=== PATIENT | male | born 1945 | race Caucasian/White ===

== ENCOUNTER → 2018-04-08 15:30 | Outpatient (CLI) | payer MEDICARE, OTHER, SELFPAY ==
--- NOTE | 2018-04-08 09:00 | DISC_PTH ---
PATIENT: CLEMENCIA PATEL LOC: [facility] U#:[id number] AGE/SX: 80/M ROOM: RE04/08/[address]: Simon Henry MD : 1945 BED: DIS: SPEC #: [id number] RECD: 04/08/18 15:24 STATUS: EVON LEESA #: [id number] ARMAND: 04/08/18 09:[address]: Simon Henry DEPT: SURGICAL PATHOLOGY RECD BY: Alvaro Pearson ENTERED: 04/09/18 14:13 SP TYPE: DISC OTHR DR: Dr. Jose M Dumont MD [facility] Tissues: Intervertebral disc, NOS Procedures: Surgery Specimen Level III HEADER OPERATION: Hemilaminectomy L4 with discectomy L4-L5 of extruded fragment with foraminotomy L4L5, right L4 radiculopathy with L4-L5 disc herniation, right PRE-OP DIAGNOSIS: Disc herniation TISSUE SUBMITTED: Extruded disc L4-L5 right MICROSCOPIC DIAGNOSIS Disc L4-L5 right: Fragments of fibrocartilaginous tissue with reactive changes. [place]:diana 04/16/18 MICROSCOPIC DESCRIPTION Slides are reviewed. GROSS DESCRIPTION Received is one container labeled with the patient's name and not further designated. The specimen consists of multiple irregular and form fragments of pink-cash soft tissue that in aggregate measure 1.5 x 1 x 0.3 cm. The specimen is totally submitted in one cassette. / AM:diana 04/09/18 TC:5 CPT: 02776
== END ==
PROVIDERS: Visit Provider Orthopaedic Surgery
DX: M54.16 Radiculopathy, lumbar region (principal); M51.26 Other intervertebral disc displacement, lumbar region
CPT/HCPCS: 88304

== ENCOUNTER 2019-11-07 16:44 | Emergency (ER) | payer MEDICARE, OTHER, SELFPAY ==
[2019-11-07 16:46] VITALS: BP 133/67; PULSE 57; RESP 18; TEMP 36.3; O2SAT 96; O2SAT 97; BMI 30.9
== END 2019-11-07 18:22 | disposition left against medical advice (07) ==
LOC: ED 17:13
PROVIDERS: Emergency Provider Emergency Medicine; Family Provider Family Medicine; PCP Family Medicine
DX: R69 Illness, unspecified (principal); Z53.21 Procedure and treatment not carried out due to patient leaving prior to being seen by health care provider

== ENCOUNTER → 2024-11-16 | Outpatient (CLI) | payer MEDICARE, SELFPAY ==
[2024-11-16 16:46] LABS: Hematocrit 37.9 % (40-54); Hemoglobin 13.4 g/dL (13.0-16.5); Mean Corp Hgb Conc 35.4 g/dL (32-36); Mean Corpuscular Hgb 32.4 pg (27.0-32.0); Mean Corpuscular Volume 91.8 fL (80-94); Mean Platelet Vol. 11.5 fl (6.2-12.0); Platelet Count 235 K/mm3 (150-450); RBC Distribution Width CV 12.1 % (11.6-14.6); RBC Distribution Width SD 40.6 fl (35.1-43.9); Red Blood Count 4.13 M/mm3 (4.6-6.2); White Blood Count 9.1 K/mm3 (4.4-11.0)
[2024-11-16 17:20] LABS: Anion Gap 3 (5-15); BUN 20 mg/dL (7-18); BUN/Creat Ratio 16.8 RATIO (10-20); Chloride 104 mmol/L (98-107); Creatinine, Serum 1.19 mg/dL (0.70-1.30); EST Glomerular Filtration Rate 63 mL/min (>60); Est Glom Filt Rate - Afr Amer 76 mL/min (>60); Glucose 229 mg/dL (74-106); Potassium 4.5 mmol/L (3.5-5.1); Sodium Level 133 mmol/L (136-145)
== END | disposition home or self-care (01) ==
LOC: LAB 15:45
PROVIDERS: PCP Family Medicine; Referring Provider Otolaryngology; Visit Provider Otolaryngology
DX: Z01.810 Encounter for preprocedural cardiovascular examination (principal)
CPT/HCPCS: 36415; 80048; 85027